=== PATIENT | female | born 1995 | race Caucasian/White ===

== ENCOUNTER 2023-06-10 20:07 | Emergency (ER) | payer BC ==
[~2023-06-10] VITALS: Ht 167.6 cm; Wt 53.1 kg
== END 2023-06-10 21:54 | disposition home or self-care (01) ==
LOC: ER 20:07
DX: M79.604 Pain in right leg (principal); W54.0XXA Bitten by dog, initial encounter; Y93.89 Activity, other specified; Y92.89 Other specified places as the place of occurrence of the external cause; Y99.8 Other external cause status